=== PATIENT | female | born 1950 | race Caucasian/White ===

== ENCOUNTER 2018-10-07 12:13 | Inpatient (IN) | payer MEDICARE ==
[~2018-10-07] VITALS: Ht 170.2 cm; Wt 40.9 kg
--- NOTE | ~2018-10-07 | MORECARE ---
CASE MANAGEMENT DISCHARGE SUMMARY PATIENT: RIZWAN BURRELL UNIT: [id number] ADM DATE: 10/07/18 AGE: 68 : 52 SEX: F ROOM/BED: D.2140 AUTHOR: BREANNADOC PHYSICIAN: REFERRING PHYSICIAN: SHIKHA LEA MD DATE OF SERVICE: 10/21/18 Discharge Plan Patient Name: RIZWAN BURRELL Facility: [facility]:[place] : 1950 Planned Disposition: Anticipated Discharge Date: 10/21/18 Discharge Date: Expected LOS: 14 Initial Reviewer: [email or web address] Initial Review Date: 10/14/2018 Generated: 10/21/18 1:43 pm Comments DCP- Discharge Planning Updated by [email or web address]: Regi Alvarado on 10/14/18 11:[address] Patient Name: RIZWAN BURRELL Admission Status: Urgent Accout number: [id number] Admission Date: 10-07-2018 : 1950 Admission Diagnosis:LOBAR PNEUMONIA, UNSPECIFIED ORGANISM Attending: SHIKHA LEA Current LOS: 7 Anticipated DC Date: Planned Disposition: Primary Insurance: MEDICARE A & B Discharge Planning Comments: CM MET WITH PATIENT'S CARMEN HAMMOND, PATIENT IS INTUBATED AT THIS TIME. CM MET WITH CARMEN ABOUT DC PLANNING/NEEDS. HE STATES PLANS FOR HER TO GET BETTER AND BE ABLE TO GO BACK TO THE [facility] WHERE THEY LIVE. HE STATES SHE WAS ON CHEMO BEFORE SHE WAS TRASFERRED HERE FROM ANOTHER HOSPITAL. STATES SHE ALSO USED HH WHERE SHE IS FROM. HE STATES SHE WAS RECENTLY DIAGNOSED WITH LUNG CA. CM WILL FOLLOW AND ASSIST NEEDED WITH DC PLANNING/NEEDS. Leaflet Distributor: Regi Alvarado DCPIA - Discharge Planning Initial Assessment Updated by [email or web address]: Regi Alvarado on 10/14/18 12:46 pm * Is the patient Alert and Oriented? No * PCP [facility] RIGHT NOW * Pharmacy [facility] * Preadmission Environment Acute Care Facility * Facility Name [facility]. * ADLs Independent * Equipment Nebulizer * List name and contact numbers for known caregivers / representatives who currently or will assist patient after discharge: CARMEN HAMMOND, , CHRISTI Sullivan MANISH, MOTHER IN LAW, * Please name any agencies selected above. STATES WAS USING HH IN ANOTHER STATE. * Additional services required to return to the preadmission environment? Yes * Has this patient been hospitalized within the prior 30 days at any hospital? Yes Last DP export: 10/14/18 11:52 a Patient Name: RIZWAN BURRELL Page [id number] at 1243 All edits/amendments must be made on the electronic document DICTATION DATE: 10/21/18 1243 HEAD COOK: SHRUTHI 10/21/18 1243 RPT#: [id number] DC DATE: STATUS: ADM IN [facility] [address] [place] [address] END OF REPORT
--- NOTE | ~2018-10-07 | OP ---
PATIENT NAME: RIZWAN BURRELL MEDICAL RECORD: [id number] :[birth year] LOCATION:[facility] D.2304 ADMISSION DATE:10/07/18 SURGEON: DELROY SAMUELS MD DATE OF OPERATION: 10/13/2018 SURGEON: Delroy Samuels MD (JJ) PREOPERATIVE DIAGNOSES: 1. Metastatic nonsmall cell lung carcinoma. 2. Occlusion of right main stem bronchus. POSTOPERATIVE DIAGNOSES: 1. Metastatic nonsmall cell lung carcinoma. 2. Occlusion of right main stem bronchus. PROCEDURE: Bronchoscopy with bronchial washings. ANESTHESIA: General. COMPLICATIONS: None. SPECIMENS: None. OPERATIVE COURSE: The patient was taken to the operating room and placed in the supine position on the operating table. Next, general anesthesia was given via endotracheal tube. Thereafter, a timeout was performed to confirm the correct patient and procedure. The bronchoscope was then advanced through the endotracheal tube. The julieth was identified. There was thick semisolid secretions lodged within the right main stem bronchus. This is cleared with several minutes of copious irrigation and suction as well as retrieval of thick secretions through the bronchoscope. Once these thick solid secretions were removed, the right main stem bronchus appeared widely patent. The bronchoscope was advanced through the right main stem bronchus. It was advanced into the bifurcation in the right upper lobe. The scope was withdrawn. It was advanced through the right lower lobe until trifurcation of the right lower lobe was identified. All primary and secondary bronchioles were unoccluded. Next, the bronchoscope was removed back to the julieth. The left main stem was then intubated, which showed no evidence of occlusion. At this time, the bronchoscopy was terminated. The bronchoscope was removed. The patient was extubated and transferred to the PACU in stable condition. TRANSINT:[id number] Voice Confirmation ID: [id number] DOCUMENT ID: [id number] DELROY SAMUELS MD at 2020 CC: [id number] DICTATION DATE: 10/13/18 171 SUEDE BRUSHER: 10/13/[address] [facility] [address] [place] [address]
--- NOTE | ~2018-10-07 | CN ---
PATIENT NAME:RIZWAN COSTELLO MEDICAL RECORD: [id number] : 52 LOCATION:. D.2140 ADMIT DATE: 10/07/18 ACCOUNT: [id number] CONSULTING PHYSICIAN: AZEB CURTIS MD REFERRING PHYSICIAN: SHIKHA LEA MD DATE OF CONSULTATION: 10/08/2018 HISTORY OF PRESENT ILLNESS: Ms. Costello is a 68-year-old -German female who is diagnosed with a nonsmall cell carcinoma of the lung. The patient was admitted to the local hospital in [place]. She has a positive D-dimer, but they could not do the CTA because of the patient's IV drug allergy. She had a VQ scan, the report is not available. The patient was transferred over here for advanced care. She is very weak and lethargic. She has shortness of breath with mild exertion. She has a right-sided chest pain, worse with coughing and movement. REVIEW OF SYSTEMS: As in history of present illness. PAST MEDICAL HISTORY: 1. COPD. 2. Peripheral vascular disease. 3. Squamous cell carcinoma of the lung. She is on chemotherapy. 4. Hypertension. 5. Arthritis. PAST SURGICAL HISTORY: 1. She has a port placement. 2. She has a lung biopsy. ALLERGIES: SHE IS ALLERGIC TO LORTAB AND HYDROCODONE. MEDICATIONS: Flamsred is reviewed. PERSONAL AND SOCIAL HISTORY: The patient is an ex-smoker. She is a nondrinker. FAMILY HISTORY: Significant for cardiovascular disease. PHYSICAL EXAMINATION: GENERAL: Now, the patient is lying comfortable in bed. She is not in acute distress. VITAL SIGNS: The blood pressure is 128/75, pulse is 84, respiration is 20, temperature is 95.7. HEENT: Conjunctivae are pink. Sclerae not icteric. NECK: Supple, no JVD. CHEST: The chest excursion is minimal on the right side. There is dullness on percussion with absent breath sounds. HEART: Rhythm regular, normal sound, no murmur. ABDOMEN: Soft, bowel sounds present. No hepatosplenomegaly. RECTAL: Deferred. EXTREMITIES: No cyanosis, no clubbing, no pedal edema. CENTRAL NERVOUS SYSTEM: The patient is awake and alert. There is no obvious cranial nerve abnormality. CHEST RADIOGRAPH: There is a large right-sided pleural effusion. There are consolidations in the right lower lobe. CONSULT REPORT [id number] RIZWAN COSTELLO OTHER LABORATORY DATA: CBC: The WBC is 5.4, hemoglobin 11.8, hematocrit 36, the platelet count is 342. Chemistry: Sodium 135, potassium 3.8, BUN is 19, creatinine 0.9. IMPRESSION: 1. Acute hypoxic respiratory failure, possible chronic. 2. Right large pleural effusion, rule out parapneumonic effusion, possible malignant. 3. Pneumonia, right lower lobe, rule out obstructive cause. 4. Atelectasis, right lower lobe. There was CA of the right lung consistent with non-small cell carcinoma of the lung. 5. COPD, acute exacerbation. 6. Failure to thrive, cachexia. 7. Coronary artery disease. RECOMMENDATION: 1. Continue supplemental oxygen. 2. Continue empiric Levaquin. 3. We will start her on Brovana, budesonide nebulizer, albuterol/ipratropium nebulizer. 4. Request right-sided thoracentesis. 5. The CTA of the chest is pending. The patient has IV contrast allergy. She is premedicated. Oncology consult. Dr. Lara, thank you for involving me in the care of Ms. Costello. TRANSINT:[id number] Voice Confirmation ID: [id number] DOCUMENT ID: [id number] AZEB CURTIS MD at 1339 CC: [id number] DICTATION DATE: 10/08/18 1506 TIRE CARE MANAGER: 10/08/18 2301 DIS IN 10/21/18 [place] [id number] [place] [id number]
--- NOTE | ~2018-10-07 | MORECARE ---
CASE MANAGEMENT DISCHARGE SUMMARY PATIENT: RIZWAN BURRELL UNIT: [id number] ADM DATE: 10/07/18 AGE: 68 : 52 SEX: F ROOM/BED: D.2304 AUTHOR: BREANNADOC PHYSICIAN: REFERRING PHYSICIAN: SHIKHA LEA MD DATE OF SERVICE: 10/14/18 Discharge Plan Patient Name: RIZWAN BURRELL Facility: [facility]:[place] : 1950 Planned Disposition: Anticipated Discharge Date: Discharge Date: Expected LOS: Initial Reviewer: [email or web address] Initial Review Date: 10/14/2018 Generated: 10/14/18 1:52 pm Comments DCP- Discharge Planning Updated by [email or web address]: Regi Alvarado on 10/14/18 11:[address] Patient Name: RIZWAN BURRELL Admission Status: Urgent Accout number: [id number] Admission Date: 10-07-2018 : 1950 Admission Diagnosis:LOBAR PNEUMONIA, UNSPECIFIED ORGANISM Attending: SHIKHA LEA Current LOS: 7 Anticipated DC Date: Planned Disposition: Primary Insurance: MEDICARE A & B Discharge Planning Comments: CM MET WITH PATIENT'S CARMEN HAMMOND, PATIENT IS INTUBATED AT THIS TIME. CM MET WITH CARMEN ABOUT DC PLANNING/NEEDS. HE STATES PLANS FOR HER TO GET BETTER AND BE ABLE TO GO BACK TO [facility] WHERE THEY LIVE. HE STATES SHE WAS ON CHEMO BEFORE SHE WAS TRASFERRED HERE FROM ANOTHER HOSPITAL. STATES SHE ALSO USED HH WHERE SHE IS FROM. HE STATES SHE WAS RECENTLY DIAGNOSED WITH LUNG CA. CM WILL FOLLOW AND ASSIST NEEDED WITH DC PLANNING/NEEDS. Bed Rubber: Regi Alvarado DCPIA - Discharge Planning Initial Assessment Updated by [email or web address]: Regi Alvarado on 10/14/18 12:46 pm * Is the patient Alert and Oriented? No * PCP [facility] RIGHT NOW * Pharmacy [facility] * Preadmission Environment Acute Care Facility * Facility Name [facility]. * ADLs Independent * Equipment Nebulizer * List name and contact numbers for known caregivers / representatives who currently or will assist patient after discharge: CARMEN HAMMOND, , CHRISTI Laurie HAMMOND, MOTHER IN LAW, * Please name any agencies selected above. STATES WAS USING HH IN ANOTHER STATE. * Additional services required to return to the preadmission environment? Yes * Has this patient been hospitalized within the prior 30 days at any hospital? Yes Patient Name: RIZWAN BURRELL Page 91800 at 1252 All edits/amendments must be made on the electronic document DICTATION DATE: 10/14/18 1251 BANKING SUPERVISOR: SHRUTHI 10/14/18 1251 RPT#: [id number] DC DATE: STATUS: ADM IN [facility] [address] [place] [address] END OF REPORT
[2018-10-07 16:29] VITALS: BP 128/75; BMI 13.9
[2018-10-07] MEDS ORDERED: TOPROL XL50 MG PO (17:32)
[2018-10-07] MEDS ORDERED: TYLENOL W/CODEI1 TAB PO (17:33)
[2018-10-07] MEDS ORDERED: BAYER CHEWABLE81 MG PO (17:38)
[2018-10-07] MEDS ORDERED: PAXIL CR37.5 MG PO (17:39)
[2018-10-07] MEDS ORDERED: PREDNISONE5 MG PO (17:40)
[2018-10-07] MEDS ORDERED: ZOCOR40 MG PO (17:40)
[2018-10-07] MEDS ORDERED: KEFLEX500 MG PO (17:41)
[2018-10-07] MEDS ORDERED: MAG-OXIDE400 MG PO (17:42)
[2018-10-07] MEDS ORDERED: GABAPENTIN100 MG PO (17:43)
[2018-10-07] MEDS ORDERED: SPIRIVA RESPIMAT4 G1 INH (17:44)
[2018-10-07] MEDS ORDERED: DECADRON4 MG (17:45)
[2018-10-07 20:00] VITALS: BP 136/75
[2018-10-07 20:50] LABS: BASOPHILS 0.2 % (0-2); EOSINOPHILS 0.6 % (0-7); HEMATOCRIT 36.8 % (36.0-48.0); HEMOGLOBIN 12.2 g/dL (12-16); IMMATURE GRANULOCYTES 0.4 % (0-5); LYMPHOCYTES 18.8 % (15-50); MCHC 33.2 g/dL (31.0-37.0); MCV 72.3 fL (80.0-100.0); MEAN PLATELET VOLUME 9.8 fL (7.4-10.4); MONOCYTES 11.4 % (2-11); NEUTROPHILS 68.6 % (40-80); PLATELET COUNT 331 10x3/uL (130-400); RBC 5.09 10x6/uL (4.00-5.40); RDW 17.8 % (11.5-14.5); WBC 4.9 10x3/uL (4.8-10.8)
[2018-10-07 21:16] LABS: ALBUMIN 2.5 g/dL (3.4-5.0); ALKALINE PHOSPHATASE 46 U/L (46-116); ALT (SGPT) 12 U/L (10-68); BILIRUBIN - TOTAL 0.38 mg/dL (0.2-1.3); CALC OSMOLALITY 272 mosm/kg (275-300); CALCIUM 8.5 mg/dL (8.5-10.1); CARBON DIOXIDE 29.1 mmol/L (21.0-32.0); CHLORIDE - SERUM 97 mmol/L (98-107); CREATININE - SERUM 0.8 mg/dL (0.6-1.3); GLUCOSE 94 mg/dL (74-106); POTASSIUM - SERUM 3.8 mmol/L (3.5-5.1); PRO BNP 15171 pg/mL (0-125); SODIUM 136 mmol/L (136-145); THYROID STIMULATING HORMONE 2.09 uIU/mL (0.36-3.74); UREA NITROGEN 16 mg/dL (7-18); eGFR NON AFRICAN AMERICAN 76 mL/min (90-120)
[2018-10-08] VITALS (7 sets, daily range): BP systolic 122–155; BP diastolic 61–78; BMI 13.9
[2018-10-08 06:43] LABS: BASOPHILS 0.2 % (0-2); EOSINOPHILS 1.7 % (0-7); HEMOGLOBIN 11.8 g/dL (12-16); IMMATURE GRANULOCYTES 0.6 % (0-5); LYMPHOCYTES 16.4 % (15-50); MCH 23.9 pg (26.0-34.0); MCHC 32.8 g/dL (31.0-37.0); MEAN PLATELET VOLUME 10.1 fL (7.4-10.4); MONOCYTES 9.3 % (2-11); NEUTROPHILS 71.8 % (40-80); PLATELET COUNT 342 10x3/uL (130-400); RBC 4.93 10x6/uL (4.00-5.40); RDW 18.1 % (11.5-14.5); WBC 5.4 10x3/uL (4.8-10.8)
[2018-10-08 07:06] LABS: ALBUMIN 2.5 g/dL (3.4-5.0); BILIRUBIN - TOTAL 0.34 mg/dL (0.2-1.3); CALCIUM 8.7 mg/dL (8.5-10.1); CARBON DIOXIDE 28.8 mmol/L (21.0-32.0); CREATININE - SERUM 0.9 mg/dL (0.6-1.3); POTASSIUM - SERUM 3.8 mmol/L (3.5-5.1); PROTEIN - SERUM 5.8 g/dL (6.4-8.2)
[2018-10-08 21:28] LABS: APPEARANCE CLEAR (CLEAR); BILIRUBIN NEGATIVE (NEGATIVE); COLOR YELLOW (YELLOW); GLUCOSE NEGATIVE (NEGATIVE); KETONE NEGATIVE (NEGATIVE); NITRITE NEGATIVE (NEGATIVE); PROTEIN NEGATIVE (NEGATIVE); SPECIFIC GRAVITY 1.025 (1.005-1.020); UROBILINOGEN NORMAL (NORMAL)
[2018-10-09 04:00] VITALS: BP 137/72
[2018-10-09 04:13] LABS: BASOPHILS 0 % (0-2); EOSINOPHILS 0.3 % (0-7); HEMATOCRIT 36.2 % (36.0-48.0); IMMATURE GRANULOCYTES 0.5 % (0-5); LYMPHOCYTES 12.2 % (15-50); MCHC 33.1 g/dL (31.0-37.0); MCV 72.3 fL (80.0-100.0); MONOCYTES 1.8 % (2-11); NEUTROPHILS 85.2 % (40-80); PLATELET COUNT 321 10x3/uL (130-400); RBC 5.01 10x6/uL (4.00-5.40); RDW 18.1 % (11.5-14.5); WBC 3.8 10x3/uL (4.8-10.8)
[2018-10-09 04:25] LABS: ALBUMIN 2.5 g/dL (3.4-5.0); ALKALINE PHOSPHATASE 45 U/L (46-116); ALT (SGPT) 11 U/L (10-68); BILIRUBIN - TOTAL 0.28 mg/dL (0.2-1.3); CALC OSMOLALITY 267 mosm/kg (275-300); CALCIUM 8.6 mg/dL (8.5-10.1); CARBON DIOXIDE 31.4 mmol/L (21.0-32.0); CHLORIDE - SERUM 95 mmol/L (98-107); CREATININE - SERUM 0.8 mg/dL (0.6-1.3); GLUCOSE 113 mg/dL (74-106); POTASSIUM - SERUM 3.8 mmol/L (3.5-5.1); PROTEIN - SERUM 5.8 g/dL (6.4-8.2); SODIUM 132 mmol/L (136-145); UREA NITROGEN 17 mg/dL (7-18); eGFR NON AFRICAN AMERICAN 76 mL/min (90-120)
[2018-10-09 08:18] VITALS: BP 156/78
[2018-10-09 12:01] VITALS: BP 116/62
[2018-10-09 15:40] VITALS: BP 127/65
[2018-10-10 04:30] VITALS: BP 95/45
[2018-10-10 06:53] LABS: ALBUMIN 2.5 g/dL (3.4-5.0); ALKALINE PHOSPHATASE 36 U/L (46-116); BILIRUBIN - TOTAL 0.24 mg/dL (0.2-1.3); CALC OSMOLALITY 268 mosm/kg (275-300); CALCIUM 8.2 mg/dL (8.5-10.1); CARBON DIOXIDE 28.4 mmol/L (21.0-32.0); CHLORIDE - SERUM 98 mmol/L (98-107); CREATININE - SERUM 0.7 mg/dL (0.6-1.3); GLUCOSE 105 mg/dL (74-106); POTASSIUM - SERUM 3.6 mmol/L (3.5-5.1); PROTEIN - SERUM 5.6 g/dL (6.4-8.2); SODIUM 134 mmol/L (136-145); UREA NITROGEN 15 mg/dL (7-18); eGFR NON AFRICAN AMERICAN 88 mL/min (90-120)
[2018-10-10 06:54] LABS: ALT (SGPT) 7 U/L (10-68)
[2018-10-10 07:22] LABS: BASOPHILS 0 % (0-2); EOSINOPHILS 0.3 % (0-7); HEMATOCRIT 33.4 % (36.0-48.0); HEMOGLOBIN 11.2 g/dL (12-16); IMMATURE GRANULOCYTES 0.2 % (0-5); LYMPHOCYTES 13.6 % (15-50); MCH 23.9 pg (26.0-34.0); MCHC 33.5 g/dL (31.0-37.0); MCV 71.4 fL (80.0-100.0); MEAN PLATELET VOLUME 9.9 fL (7.4-10.4); MONOCYTES 10.7 % (2-11); NEUTROPHILS 75.2 % (40-80); PLATELET COUNT 315 10x3/uL (130-400); RBC 4.68 10x6/uL (4.00-5.40)
[2018-10-10 07:24] LABS: WBC 6.1 10x3/uL (4.8-10.8)
[2018-10-10 09:33] VITALS: BP 120/64
[2018-10-10 12:58] VITALS: BP 135/49
[2018-10-10 17:09] VITALS: BP 135/58
[2018-10-10 20:30] VITALS: BP 160/70
[2018-10-11 05:55] LABS: BASOPHILS 0 % (0-2); EOSINOPHILS 4.7 % (0-7); HEMATOCRIT 33.6 % (36.0-48.0); IMMATURE GRANULOCYTES 0.5 % (0-5); LYMPHOCYTES 12.3 % (15-50); MCH 23.9 pg (26.0-34.0); MCHC 32.7 g/dL (31.0-37.0); MCV 72.9 fL (80.0-100.0); MEAN PLATELET VOLUME 9.9 fL (7.4-10.4); MONOCYTES 7.6 % (2-11); NEUTROPHILS 74.9 % (40-80); PLATELET COUNT 269 10x3/uL (130-400); RBC 4.61 10x6/uL (4.00-5.40); RDW 18.3 % (11.5-14.5); WBC 6.6 10x3/uL (4.8-10.8)
[2018-10-11 06:50] LABS: ALBUMIN 2.3 g/dL (3.4-5.0); ALKALINE PHOSPHATASE 39 U/L (46-116); BILIRUBIN - TOTAL 0.23 mg/dL (0.2-1.3); CALCIUM 8.1 mg/dL (8.5-10.1); CARBON DIOXIDE 26.9 mmol/L (21.0-32.0); CHLORIDE - SERUM 99 mmol/L (98-107); CREATININE - SERUM 0.6 mg/dL (0.6-1.3); GLUCOSE 84 mg/dL (74-106); POTASSIUM - SERUM 3.2 mmol/L (3.5-5.1); PROTEIN - SERUM 5.3 g/dL (6.4-8.2); SODIUM 135 mmol/L (136-145); eGFR NON AFRICAN AMERICAN > 90 mL/min (90-120)
[2018-10-11 06:51] LABS: ALT (SGPT) 14 U/L (10-68); CALC OSMOLALITY 266 mosm/kg (275-300); UREA NITROGEN 8 mg/dL (7-18)
[2018-10-11 08:54] VITALS: BP 138/71
[2018-10-11 13:37] VITALS: Ht 170.2 cm; Wt 40.9 kg
[2018-10-11 22:11] VITALS: BP 157/69
[2018-10-12 01:13] VITALS: BP 111/66
[2018-10-12 05:18] VITALS: BP 122/65
[2018-10-12 06:02] LABS: BASOPHILS 0 % (0-2); EOSINOPHILS 4.3 % (0-7); HEMATOCRIT 31.7 % (36.0-48.0); HEMOGLOBIN 10.4 g/dL (12-16); IMMATURE GRANULOCYTES 0.3 % (0-5); LYMPHOCYTES 9.6 % (15-50); MCHC 32.8 g/dL (31.0-37.0); MCV 73.2 fL (80.0-100.0); MEAN PLATELET VOLUME 10.1 fL (7.4-10.4); MONOCYTES 6.8 % (2-11); PLATELET COUNT 260 10x3/uL (130-400); RBC 4.33 10x6/uL (4.00-5.40); RDW 18.2 % (11.5-14.5); WBC 7.7 10x3/uL (4.8-10.8)
[2018-10-12 07:03] LABS: ALBUMIN 2.2 g/dL (3.4-5.0); ALKALINE PHOSPHATASE 38 U/L (46-116); BILIRUBIN - TOTAL 0.35 mg/dL (0.2-1.3); CALC OSMOLALITY 265 mosm/kg (275-300); CALCIUM 8.4 mg/dL (8.5-10.1); CARBON DIOXIDE 27.1 mmol/L (21.0-32.0); CHLORIDE - SERUM 100 mmol/L (98-107); CREATININE - SERUM 0.6 mg/dL (0.6-1.3); GLUCOSE 90 mg/dL (74-106); PROTEIN - SERUM 5.3 g/dL (6.4-8.2); SODIUM 134 mmol/L (136-145); UREA NITROGEN 7 mg/dL (7-18); eGFR NON AFRICAN AMERICAN > 90 mL/min (90-120)
[2018-10-12 07:04] LABS: ALT (SGPT) 8 U/L (10-68); POTASSIUM - SERUM 4.3 mmol/L (3.5-5.1)
[2018-10-12 09:33] VITALS: BP 134/61
[2018-10-12 11:36] VITALS: BP 134/66
[2018-10-12 15:46] VITALS: BP 142/666
[2018-10-12 21:07] VITALS: BP 139/59
[2018-10-13] VITALS (11 sets, daily range): BP systolic 96–172; BP diastolic 63–85
[2018-10-13 05:41] LABS: BASOPHILS 0.1 % (0-2); EOSINOPHILS 0.2 % (0-7); HEMATOCRIT 31.3 % (36.0-48.0); HEMOGLOBIN 10.3 g/dL (12-16); IMMATURE GRANULOCYTES 0.6 % (0-5); LYMPHOCYTES 4.2 % (15-50); MCHC 32.9 g/dL (31.0-37.0); MCV 72.8 fL (80.0-100.0); MEAN PLATELET VOLUME 9.4 fL (7.4-10.4); MONOCYTES 3.2 % (2-11); NEUTROPHILS 91.7 % (40-80); PLATELET COUNT 227 10x3/uL (130-400); RDW 18.4 % (11.5-14.5); WBC 8.8 10x3/uL (4.8-10.8)
[2018-10-13 06:07] LABS: ALBUMIN 2.3 g/dL (3.4-5.0); ALKALINE PHOSPHATASE 42 U/L (46-116); ALT (SGPT) 7 U/L (10-68); BILIRUBIN - TOTAL 0.36 mg/dL (0.2-1.3); CALC OSMOLALITY 258 mosm/kg (275-300); CALCIUM 8.4 mg/dL (8.5-10.1); CARBON DIOXIDE 25.5 mmol/L (21.0-32.0); CHLORIDE - SERUM 94 mmol/L (98-107); CREATININE - SERUM 0.6 mg/dL (0.6-1.3); GLUCOSE 121 mg/dL (74-106); MAGNESIUM - SERUM 1.4 mg/dL (1.8-2.4); PHOSPHOROUS 2.5 mg/dL (2.5-4.9); POTASSIUM - SERUM 4.2 mmol/L (3.5-5.1); PROTEIN - SERUM 5.8 g/dL (6.4-8.2); SODIUM 129 mmol/L (136-145); eGFR NON AFRICAN AMERICAN > 90 mL/min (90-120)
[2018-10-13 06:09] LABS: UREA NITROGEN 10 mg/dL (7-18)
[2018-10-14] VITALS (25 sets, daily range): BP systolic 100–159; BP diastolic 62–90
[2018-10-14 04:22] LABS: BASOPHILS 0 % (0-2); EOSINOPHILS 0 % (0-7); HEMATOCRIT 29.5 % (36.0-48.0); HEMOGLOBIN 9.8 g/dL (12-16); IMMATURE GRANULOCYTES 0.5 % (0-5); LYMPHOCYTES 6.2 % (15-50); MCH 23.9 pg (26.0-34.0); MCHC 33.2 g/dL (31.0-37.0); MONOCYTES 3.4 % (2-11); NEUTROPHILS 89.9 % (40-80); PLATELET COUNT 249 10x3/uL (130-400); RDW 18.5 % (11.5-14.5)
[2018-10-14 04:36] LABS: WBC 6.5 10x3/uL (4.8-10.8)
[2018-10-14 04:43] LABS: CALC OSMOLALITY 260 mosm/kg (275-300); CALCIUM 8.9 mg/dL (8.5-10.1); CARBON DIOXIDE 22.8 mmol/L (21.0-32.0); CHLORIDE - SERUM 97 mmol/L (98-107); CREATININE - SERUM 0.6 mg/dL (0.6-1.3); GLUCOSE 101 mg/dL (74-106); POTASSIUM - SERUM 4.3 mmol/L (3.5-5.1); SODIUM 130 mmol/L (136-145); eGFR NON AFRICAN AMERICAN > 90 mL/min (90-120)
[2018-10-14 04:53] LABS: UREA NITROGEN 13 mg/dL (7-18)
[2018-10-15] VITALS (23 sets, daily range): BP systolic 104–153; BP diastolic 63–95
[2018-10-15 05:24] LABS: BASOPHILS 0 % (0-2); EOSINOPHILS 3.9 % (0-7); HEMATOCRIT 27.6 % (36.0-48.0); HEMOGLOBIN 9.3 g/dL (12-16); IMMATURE GRANULOCYTES 0.6 % (0-5); LYMPHOCYTES 9.6 % (15-50); MCH 23.9 pg (26.0-34.0); MCHC 33.7 g/dL (31.0-37.0); MEAN PLATELET VOLUME 9.8 fL (7.4-10.4); MONOCYTES 9.2 % (2-11); NEUTROPHILS 76.7 % (40-80); PLATELET COUNT 233 10x3/uL (130-400); RBC 3.89 10x6/uL (4.00-5.40); RDW 18.2 % (11.5-14.5); WBC 6.8 10x3/uL (4.8-10.8)
[2018-10-15 05:36] LABS: ALKALINE PHOSPHATASE 36 U/L (46-116); ALT (SGPT) 7 U/L (10-68); BILIRUBIN - TOTAL 0.18 mg/dL (0.2-1.3); CALC OSMOLALITY 262 mosm/kg (275-300); CALCIUM 7.9 mg/dL (8.5-10.1); CARBON DIOXIDE 23.6 mmol/L (21.0-32.0); CHLORIDE - SERUM 97 mmol/L (98-107); CREATININE - SERUM 0.6 mg/dL (0.6-1.3); GLUCOSE 77 mg/dL (74-106); MAGNESIUM - SERUM 1.5 mg/dL (1.8-2.4); PHOSPHOROUS 3.1 mg/dL (2.5-4.9); POTASSIUM - SERUM 3.9 mmol/L (3.5-5.1); PROTEIN - SERUM 5.1 g/dL (6.4-8.2); SODIUM 131 mmol/L (136-145); UREA NITROGEN 15 mg/dL (7-18); eGFR NON AFRICAN AMERICAN > 90 mL/min (90-120)
[2018-10-16] VITALS (24 sets, daily range): BP systolic 79–122; BP diastolic 49–77
[2018-10-16 05:05] LABS: BASOPHILS 0.1 % (0-2); EOSINOPHILS 1.1 % (0-7); HEMATOCRIT 29.6 % (36.0-48.0); HEMOGLOBIN 10.1 g/dL (12-16); IMMATURE GRANULOCYTES 1.1 % (0-5); LYMPHOCYTES 2.2 % (15-50); MCHC 34.1 g/dL (31.0-37.0); MCV 70.5 fL (80.0-100.0); MEAN PLATELET VOLUME 9.7 fL (7.4-10.4); NEUTROPHILS 90.5 % (40-80); PLATELET COUNT 202 10x3/uL (130-400); RDW 18.1 % (11.5-14.5)
[2018-10-16 05:07] LABS: WBC 9.6 10x3/uL (4.8-10.8)
[2018-10-16 05:21] LABS: CALC OSMOLALITY 246 mosm/kg (275-300); CALCIUM 7.7 mg/dL (8.5-10.1); CARBON DIOXIDE 21.2 mmol/L (21.0-32.0); CHLORIDE - SERUM 92 mmol/L (98-107); CREATININE - SERUM 0.5 mg/dL (0.6-1.3); GLUCOSE 87 mg/dL (74-106); MAGNESIUM - SERUM 1.5 mg/dL (1.8-2.4); PHOSPHOROUS 2.9 mg/dL (2.5-4.9); POTASSIUM - SERUM 3.5 mmol/L (3.5-5.1); SODIUM 123 mmol/L (136-145); UREA NITROGEN 13 mg/dL (7-18); eGFR NON AFRICAN AMERICAN > 90 mL/min (90-120)
[2018-10-16 15:55] LABS: CALC OSMOLALITY 247 mosm/kg (275-300); CALCIUM 7.6 mg/dL (8.5-10.1); CARBON DIOXIDE 22.7 mmol/L (21.0-32.0); CHLORIDE - SERUM 93 mmol/L (98-107); CREATININE - SERUM 0.4 mg/dL (0.6-1.3); GLUCOSE 111 mg/dL (74-106); POTASSIUM - SERUM 4.2 mmol/L (3.5-5.1); SODIUM 122 mmol/L (136-145); UREA NITROGEN 14 mg/dL (7-18); eGFR NON AFRICAN AMERICAN > 90 mL/min (90-120)
[2018-10-16 19:07] LABS: ACID FAST SMEAR Negative (()); AFB SPECIMEN PROCESSING Concentration (())
[2018-10-17] VITALS (23 sets, daily range): BP systolic 103–128; BP diastolic 50–68
[2018-10-17 05:26] LABS: BASOPHILS 0 % (0-2); EOSINOPHILS 1.4 % (0-7); HEMATOCRIT 25.8 % (36.0-48.0); HEMOGLOBIN 8.8 g/dL (12-16); IMMATURE GRANULOCYTES 0.7 % (0-5); LYMPHOCYTES 4.1 % (15-50); MCH 23.9 pg (26.0-34.0); MCHC 34.1 g/dL (31.0-37.0); MCV 70.1 fL (80.0-100.0); MEAN PLATELET VOLUME 9.5 fL (7.4-10.4); MONOCYTES 5.1 % (2-11); NEUTROPHILS 88.7 % (40-80); PLATELET COUNT 172 10x3/uL (130-400); RBC 3.68 10x6/uL (4.00-5.40); RDW 18.1 % (11.5-14.5); WBC 8.4 10x3/uL (4.8-10.8)
[2018-10-17 06:05] LABS: ALBUMIN 1.7 g/dL (3.4-5.0); ALKALINE PHOSPHATASE 46 U/L (46-116); BILIRUBIN - TOTAL 0.19 mg/dL (0.2-1.3); CALC OSMOLALITY 250 mosm/kg (275-300); CALCIUM 7.6 mg/dL (8.5-10.1); CARBON DIOXIDE 22.7 mmol/L (21.0-32.0); CHLORIDE - SERUM 94 mmol/L (98-107); CREATININE - SERUM 0.4 mg/dL (0.6-1.3); GLUCOSE 100 mg/dL (74-106); MAGNESIUM - SERUM 1.8 mg/dL (1.8-2.4); POTASSIUM - SERUM 4.3 mmol/L (3.5-5.1); PROTEIN - SERUM 4.9 g/dL (6.4-8.2); SODIUM 124 mmol/L (136-145); UREA NITROGEN 14 mg/dL (7-18); eGFR NON AFRICAN AMERICAN > 90 mL/min (90-120)
[2018-10-17 06:07] LABS: ALT (SGPT) 10 U/L (10-68); PHOSPHOROUS 1.5 mg/dL (2.5-4.9)
[2018-10-18] VITALS (24 sets, daily range): BP systolic 89–151; BP diastolic 52–89
[2018-10-18 05:30] LABS: BASOPHILS 0.1 % (0-2); EOSINOPHILS 1.6 % (0-7); HEMATOCRIT 30.5 % (36.0-48.0); HEMOGLOBIN 10.4 g/dL (12-16); IMMATURE GRANULOCYTES 0.6 % (0-5); LYMPHOCYTES 4.8 % (15-50); MCH 25.1 pg (26.0-34.0); MCHC 34.1 g/dL (31.0-37.0); MEAN PLATELET VOLUME 9.7 fL (7.4-10.4); MONOCYTES 3.9 % (2-11); PLATELET COUNT 175 10x3/uL (130-400); RBC 4.15 10x6/uL (4.00-5.40); RDW 19.1 % (11.5-14.5)
[2018-10-18 05:37] LABS: MCV 73.5 fL (80.0-100.0); WBC 11.2 10x3/uL (4.8-10.8)
[2018-10-18 05:40] LABS: % SATURATION 15 % (15-55); IRON 15 ug/dl (35-150); TOTAL IRON BIND CAPACITY 95 ug/dl (260-445); UNSAT IRON BIND CAPACITY 80 ug/dl (150-375)
[2018-10-18 06:16] LABS: ALBUMIN 1.7 g/dL (3.4-5.0); ALKALINE PHOSPHATASE 45 U/L (46-116); ALT (SGPT) 12 U/L (10-68); BILIRUBIN - TOTAL 0.22 mg/dL (0.2-1.3); CALC OSMOLALITY 256 mosm/kg (275-300); CALCIUM 7.3 mg/dL (8.5-10.1); CARBON DIOXIDE 24.3 mmol/L (21.0-32.0); CHLORIDE - SERUM 97 mmol/L (98-107); CREATININE - SERUM 0.4 mg/dL (0.6-1.3); GLUCOSE 100 mg/dL (74-106); MAGNESIUM - SERUM 1.9 mg/dL (1.8-2.4); POTASSIUM - SERUM 4.1 mmol/L (3.5-5.1); PROTEIN - SERUM 5.1 g/dL (6.4-8.2); SODIUM 128 mmol/L (136-145); UREA NITROGEN 13 mg/dL (7-18); eGFR NON AFRICAN AMERICAN > 90 mL/min (90-120)
[2018-10-18 06:19] LABS: FERRITIN 1445 ng/mL (3-244)
[2018-10-18 06:20] LABS: PHOSPHOROUS 1.3 mg/dL (2.5-4.9)
[2018-10-18 13:13] LABS: FUNGUS STAIN Final report (())
[2018-10-19] VITALS (26 sets, daily range): BP systolic 104–150; BP diastolic 52–78
[2018-10-19 06:07] LABS: BASOPHILS 0.1 % (0-2); EOSINOPHILS 1.3 % (0-7); HEMATOCRIT 29.1 % (36.0-48.0); HEMOGLOBIN 9.8 g/dL (12-16); IMMATURE GRANULOCYTES 0.7 % (0-5); LYMPHOCYTES 4.4 % (15-50); MCH 25.2 pg (26.0-34.0); MCHC 33.7 g/dL (31.0-37.0); MCV 74.8 fL (80.0-100.0); MEAN PLATELET VOLUME 9.6 fL (7.4-10.4); MONOCYTES 2.5 % (2-11); PLATELET COUNT 188 10x3/uL (130-400); RBC 3.89 10x6/uL (4.00-5.40); RDW 19.6 % (11.5-14.5); WBC 11.3 10x3/uL (4.8-10.8)
[2018-10-19 06:27] LABS: CALC OSMOLALITY 265 mosm/kg (275-300); CALCIUM 7.3 mg/dL (8.5-10.1); CHLORIDE - SERUM 101 mmol/L (98-107); CREATININE - SERUM 0.4 mg/dL (0.6-1.3); GLUCOSE 98 mg/dL (74-106); MAGNESIUM - SERUM 1.8 mg/dL (1.8-2.4); POTASSIUM - SERUM 3.5 mmol/L (3.5-5.1); SODIUM 133 mmol/L (136-145); UREA NITROGEN 13 mg/dL (7-18); eGFR NON AFRICAN AMERICAN > 90 mL/min (90-120)
[2018-10-19 06:32] LABS: PHOSPHOROUS 1.9 mg/dL (2.5-4.9)
[2018-10-20] VITALS (16 sets, daily range): BP systolic 70–164; BP diastolic 52–74
[2018-10-20 02:22] LABS: BASOPHILS 0.2 % (0-2); EOSINOPHILS 1.1 % (0-7); HEMOGLOBIN 9.8 g/dL (12-16); IMMATURE GRANULOCYTES 1.1 % (0-5); LYMPHOCYTES 4.5 % (15-50); MCH 25.3 pg (26.0-34.0); MCHC 33.8 g/dL (31.0-37.0); MCV 74.9 fL (80.0-100.0); MEAN PLATELET VOLUME 9.2 fL (7.4-10.4); MONOCYTES 3.3 % (2-11); NEUTROPHILS 89.8 % (40-80); PLATELET COUNT 186 10x3/uL (130-400); RBC 3.87 10x6/uL (4.00-5.40); RDW 19.7 % (11.5-14.5); WBC 11.5 10x3/uL (4.8-10.8)
[2018-10-20 02:29] LABS: CALC OSMOLALITY 268 mosm/kg (275-300); CALCIUM 7.4 mg/dL (8.5-10.1); CARBON DIOXIDE 24.2 mmol/L (21.0-32.0); CHLORIDE - SERUM 101 mmol/L (98-107); CREATININE - SERUM 0.4 mg/dL (0.6-1.3); GLUCOSE 88 mg/dL (74-106); POTASSIUM - SERUM 3.7 mmol/L (3.5-5.1); SODIUM 135 mmol/L (136-145); UREA NITROGEN 13 mg/dL (7-18); eGFR NON AFRICAN AMERICAN > 90 mL/min (90-120)
[2018-10-21 17:13] LABS: FUNGUS CULTURE RESULT 1 Candida glabrata (()); FUNGUS MYCOLOGY CULTURE Preliminary report (())
== END 2018-10-21 12:52 | DRG 193 ==
LOC: D.M3 12:13 → D.M2 16:02 → D.ICU 16:02 → D.M2 10-09 19:43 → D.ICU 10-13 17:58 → D.M2 10-20 16:17
PROVIDERS: Family Medicine; Internal Medicine Nephrology; Internal Medicine Pulmonary Disease; Surgery
PROC: 0B938ZZ Drainage of Right Main Bronchus, Via Natural or Artificial Opening Endoscopic (ICD-10-PCS; principal; 2018-10-13 12:30)
PROC: 0BC68ZZ Extirpation of Matter from Right Lower Lobe Bronchus, Via Natural or Artificial Opening Endoscopic (ICD-10-PCS; 2018-10-15)
PROC: 0BC48ZZ Extirpation of Matter from Right Upper Lobe Bronchus, Via Natural or Artificial Opening Endoscopic (ICD-10-PCS; 2018-10-15)
PROC: 0BC58ZZ Extirpation of Matter from Right Middle Lobe Bronchus, Via Natural or Artificial Opening Endoscopic (ICD-10-PCS; 2018-10-15)
PROC: 0BC38ZZ Extirpation of Matter from Right Main Bronchus, Via Natural or Artificial Opening Endoscopic (ICD-10-PCS; 2018-10-15)
PROC: 0B968ZZ Drainage of Right Lower Lobe Bronchus, Via Natural or Artificial Opening Endoscopic (ICD-10-PCS; 2018-10-16)
PROC: 0B958ZZ Drainage of Right Middle Lobe Bronchus, Via Natural or Artificial Opening Endoscopic (ICD-10-PCS; 2018-10-16)
DX: J18.1 Lobar pneumonia, unspecified organism (principal); J96.21 Acute and chronic respiratory failure with hypoxia; E43 Unspecified severe protein-calorie malnutrition; R40.2314 Coma scale, best motor response, none, 24 hours or more after hospital admission; R40.2114 Coma scale, eyes open, never, 24 hours or more after hospital admission; R40.2214 Coma scale, best verbal response, none, 24 hours or more after hospital admission; C34.31 Malignant neoplasm of lower lobe, right bronchus or lung; J98.11 Atelectasis; J44.1 Chronic obstructive pulmonary disease with (acute) exacerbation; J44.0 Chronic obstructive pulmonary disease with (acute) lower respiratory infection; Z68.1 Body mass index [BMI] 19.9 or less, adult; E87.1 Hypo-osmolality and hyponatremia; I10 Essential (primary) hypertension; Z66 Do not resuscitate; E78.5 Hyperlipidemia, unspecified; R62.7 Adult failure to thrive; I25.10 Atherosclerotic heart disease of native coronary artery without angina pectoris; D50.9 Iron deficiency anemia, unspecified; I48.91 Unspecified atrial fibrillation